=== PATIENT | female | born 1935 | race Caucasian/White ===

== ENCOUNTER 2024-11-15 12:32 | Outpatient (CLI) | payer MEDICARE ==
[~2024-11-15 12:32] MED LIST: EMPA25TA PO; INSU100I8 SQ; INSU300I3 SQ; LEVO75TA7 PO; LIRA0.6P SQ; LOSA50TA64 PO; LOVA40TA2 PO
== END 2024-11-15 23:59 | disposition home or self-care (01) ==
LOC: RAD 12:32
PROVIDERS: ATTEND Family Medicine
DX: R51.9 Headache, unspecified (principal)
CPT/HCPCS: 70486